=== PATIENT | male | born 1960 | race Caucasian/White ===

== ENCOUNTER 2018-11-02 13:46 | Inpatient (IN) | payer OTHER ==
[~2018-11-02] VITALS: Ht 185.4 cm; Wt 78.0 kg
[2018-11-02 13:47] VITALS: BP 131/83
--- NOTE | 2018-11-02 13:50 | NUR ---
DR. CASTORENA [facility].
--- NOTE | 2018-11-02 14:44 | NUR ---
WITH FURTHER ASSESSMENT, PT. REPORTS HE IS SUICIDAL AT THIS TIME. PT. REPORTS HX OF SI WITH ATTEMPT X 2. PT. CONTACTED VIA TELEPHONE AND INFORMS PT. HAS HX OF PTSD, DEPRESSION, ANXIETY, ETOH USE AND ABUSE. PT. IS MEANT TO BE TAKING MEDICATION FOR MENTAL HEALTH DX, BUT DOES NOT COMPLY. PT. IS VERY TEARFUL WHEN ASKED ABOUT HIS PAST AND CURRENT LIFE HX. PT. INFORMS HE WAS IN THE [employer] FOR SEVERAL YEARS AND SUFFERS FROM PTSD. PT. AT THIS TIME REMAINS IN ER WITH 1:1 SITTER AT THE BEDSIDE. ORDERS RECEIVED AND CARRIED OUT WILL CONT. TO MONITOR CLOSELY.
[2018-11-02 14:52] LABS: HEMATOCRIT 39.4 % (42.0-52.0); HEMOGLOBIN 13.6 gm/dL (14.0-18.0); MCH 33.3 pg (26.0-34.0); MCHC 34.4 g/dL (28.0-37.0); MCV 96.9 fL (80.0-100.0); RBC 4.07 mil/uL (4.50-6.00); RDW 13.6 % (10.5-14.5); WBC 6.4 thou/uL (4.0-11.0)
[2018-11-02 15:03] LABS: CALCIUM 8.5 mg/dL (8.5-10.1); CREATININE 0.7 mg/dL (0.7-1.3); POTASSIUM 3.6 mmol/L (3.5-5.1)
--- NOTE | 2018-11-02 17:02 | NUR ---
PT. CONT. IN ER. PT. ALERT AND AWAKE. PT. CONT. TO BE TEARFUL AND THEN LAUGH PT. IS APPROPRIATE AT THIS TIME. PT. CONT. WITH 1:1 SITTER.
[2018-11-02 17:43] LABS: URINE BILIRUBIN NEGATIVE (Negative); URINE BLOOD NEGATIVE (Negative); URINE CLARITY CLEAR; URINE COLOR YELLOW; URINE GLUCOSE-RANDOM* NEGATIVE (Negative); URINE KETONES NEGATIVE (Negative); URINE LEUKOCYTES-REFLEX NEGATIVE (Negative); URINE NITRITE-REFLEX NEGATIVE (Negative); URINE PROTEIN (DIPSTICK) NEGATIVE (Negative); URINE SPECIFIC GRAVITY 1.015 (1.005-1.035)
[2018-11-02 17:50] LABS: AMP/METHAMP Negative (Negative); BARBITURATES Negative (Negative); BENZODIAZEPINES POSITIVE (Negative); COCAINE Negative (Negative); METHADONE Negative (Negative); OPIATES Negative (Negative); PCP Negative (Negative)
[2018-11-03 22:02] VITALS: BP 148/94
[2018-11-03 23:24] VITALS: BP 132/89
[2018-11-04] VITALS (7 sets, daily range): BP systolic 100–130; BP diastolic 61–86
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
--- NOTE | 2018-11-04 05:50 | NUR ---
PT REPORTED SLEEPING WELL, DENIES AND S/S OF WITHDRAWL.
[2018-11-04 15:38] LABS: ALBUMIN 3.7 g/dL (3.4-5.0); DIRECT BILIRUBIN 0.3 mg/dL (<0.1-0.3); TOTAL BILIRUBIN 1.4 mg/dL (<0.1-1.0); TOTAL PROTEIN 8.1 g/dL (6.4-8.2)
[2018-11-04 16:05] LABS: FOLIC ACID 17.4 ng/mL (8.6-58.9)
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
--- NOTE | 2018-11-04 16:37 | NUR ---
SW schedule family meeting on November 05, 2018 at 9:30am.
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
--- NOTE | 2018-11-04 22:15 | NUR ---
Care assumed of patient at 1915: Patient alert and oriented x4. Patient calm, pleasant and cooperative. Patient laughing, joking and interacting with staff and peers. Patient took HS medication without difficulty. Patient requested for Trazadone to help him sleep. PRN dose of Trazodone provided. Patient remains on detox protocol. Patient assessed q4 hours and PRN. Vital signs stable at this time. Patient was able to speak with his on the phone this shift. Ate 100% HS snack. Patient reported that he is fortunate he hasn't lost his due to his alcoholism. Reports that he has been 32 years. Reports that he wants to get involved with AA and stop drinking for good. Reports that he had been sober for 4 months before the most recent binge. Patient has been able to sit in day room and sit in his room and read his book. Patient resting quietly at this time.
[2018-11-05 00:08] VITALS: BP 107/65
[2018-11-05 02:10] VITALS: BP 114/77
[2018-11-05 04:25] VITALS: BP 102/63
[2018-11-05 06:10] VITALS: BP 108/73
[2018-11-05] MEDS ORDERED: KEPPRA 500 MG500 MG PO (12:55)
[2018-11-05] MEDS ORDERED: PRENATAL PO (12:55)
[2018-11-05] MEDS ORDERED: NEURONTIN 300300 M1 PO (12:55)
[2018-11-05] MEDS ORDERED: PEPCID20 MG PO (12:55)
[2018-11-05] MEDS ORDERED: TRAZODONE 150150 M1 PO (12:55)
[2018-11-05] MEDS ORDERED: PROZAC 20 MG20 MG PO (12:55)
--- NOTE | 2018-11-05 14:14 | NUR ---
0700: Report rec from noc shift, care assumed. 0800: Independently ambulatory to DR, gait steady, denies headache, tremors or sweating, no s/s noted of DT's, denies SI or HI. Feeds self, appetite good, takes meds whole w/o difficulty. Plans for discharge to home today.
[2018-11-05 15:33] VITALS: BP 102/63
[2018-11-05 17:03] VITALS: BP 102/63
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
--- NOTE | 2018-11-06 22:29 | D ---
[facility] [place] [address] [address] [place] [address] DISCHARGE SUMMARY Name: ANGEL VEGA Room #: 523B-B DIS IN M.R.#: [id number] Admission: 11/03/18 ������������������ Attend Phys: Salvador Grant DO Discharge: 11/05/18 ������������������ Date of : 64 Report #: [id number] THIS REPORT FOR: //name// CC: Salvador JESUS physician/PCP DATE OF SERVICE: 11/05/2018 INPATIENT PSYCHIATRIC DISCHARGE SUMMARY ATTENDING PHYSICIAN: Salvador Grant DO FARROWING MANAGER: Slava Odom MD DISCHARGE DIAGNOSES: Alcohol intoxication, resolved; substance use disorder for alcohol, severe; likely posttraumatic stress disorder, history of major depression. DISCHARGE PLAN: Regular diet. No alcohol, no illicit drugs. Discharge to his home where he lives with his . The patient is strongly encouraged to participate in Alcoholics Anonymous. He is scheduled to go to [facility] for outpatient dual diagnosis services. DISCHARGE MEDICATIONS: Gabapentin 300 mg 3 times a day for relapse prevention and mood stabilization, Keppra 500 mg p.o. b.i.d. for seizure disorder supposedly, fluoxetine 20 mg p.o. daily for depression, trazodone 150 mg p.o. at bedtime p.r.n. for insomnia, famotidine 20 mg p.o. b.i.d. before meals for GERD and chewable vitamin 1 tablet p.o. daily for supplementation. LABORATORY DATA: This admission, CBC within normal limits except H and H 13.6 and 39.4, white count 6.4, platelets 535,000. Chemistries from 10/03/2018, sodium 135, potassium 3.6, chloride 98, BUN 6, creatinine 0.7, estimated GFR 117, glucose 126, calcium 8.5, ALT 89, AST 37, alkaline phosphatase 87. B12 at 473, folate 17.4. Pt advised he will need LFT follow up to see if enzymes nromalized due to possibilit for Fatty Liver disease. I recommended him about having put on 500 mcg daily vitamin B12. Vitamin D not tested, but suspect that may be low as well. REASON FOR ADMISSION: Suicidal ideations, repeated admissions in the last 2 months. HOSPITAL COURSE: The patient was admitted to Geriatric Psych Unit. He did receive some doses on the CIWA protocol, but did not have any severe withdrawal symptomatology. I felt it is safe to discharge him home given the likelihood of [facility] [address] [place] [address] DISCHARGE SUMMARY Name: ANGEL VEGA Room #: 523B-B [facility] IN ..#: [id number] Admission: 11/03/18 ������������������ Attend Phys: Salvador Grant DO Discharge: 11/05/18 ������������������ Date of : 64 Report #: [id number] withdrawal seizure at this point. Patient emphasized he would "no longer drink alcohol". had requested withdrawl on Sunday. I had met with his Sunday morning. Risks dsicussed with patient and spouse inlcuding relapse and above avergae risk of suicide/ suicide attempt. PHYSICAL EXAMINATION: VITAL SIGNS: On the day of discharge, temperature 36.7, pulse wnl, respirations 18, BP 102/63. MUSCULOSKELETAL: Normal gait and station. MENTAL STATUS EXAMINATION: This is a well-developed, well-nourished male, appearing stated age. Attention intact. Concentration intact. Speech is normal in rate, volume and tone. Thought process is linear and goal oriented. Thought content focused on discharge. Some psychomotor agitation about discharge. Memory not formally tested. Insight fair. Judgment limited. Fund of knowledge below average. Prognosis for this patient is guarded given the aggressive behavior and number of hospitalizations. is aware of the increased risk of suicide background. The patient was counseled on how to seek emergency care should suicidality occur. ��������������������������������������������� <ELECTRONICALLY SIGNED> ���������������������������������������� By: Salvador Grant DO ��������������������������������������������� 11/06/18 2229 [id number] 0001 Salvador Grant DO /nt
== END 2018-11-05 17:33 | disposition home or self-care (01) | DRG 885 ==
LOC: ER 13:46 → SBH 11-03 18:56 → EROBS 11-03 18:56 → SBH 11-03 18:56
PROVIDERS: Emergency Medicine; ADMIT Psychiatry & Neurology Psychiatry
DX: F33.9 Major depressive disorder, recurrent, unspecified (principal); R45.851 Suicidal ideations; F10.129 Alcohol abuse with intoxication, unspecified; F43.10 Post-traumatic stress disorder, unspecified; G62.1 Alcoholic polyneuropathy; G40.909 Epilepsy, unspecified, not intractable, without status epilepticus; Z81.1 Family history of alcohol abuse and dependence; Z81.8 Family history of other mental and behavioral disorders
CPT/HCPCS: 10880